=== PATIENT | female | born 1960 | race American Indian/Alaskan Native ===

== ENCOUNTER 2020-09-29 13:00 | Emergency (ER) | payer SELFPAY ==
--- NOTE | 2020-09-29 13:34 | Event Note ---
ED Screening Note Date of service: 09/29/20 Time: 13:32 ED Screening Note: 60-year-old female patient presents to emergency department with complaints of dizziness and nontraumatic headache starting 2 days ago. Patient states her symptoms are worse with standing and movement. She asked a colleague to check her blood pressure at work when her symptoms began, and her blood pressure was found to be elevated. She has no known history of hypertension. She has not been to a primary care physician in several years. She does not take any medication on a daily basis. Headache has been diffuse with waxing/waning intensity. General: Awake, appropriately interactive, no acute distress. Neck: Supple. Full range of motion intact. Cardiovascular: Normal peripheral perfusion. Pulmonary: No respiratory distress. Patient is speaking normally without use of accessory muscles. Skin: No apparent rashes or lesions. Neurological: No facial asymmetry. Speech is clear. Follows commands. Patient is alert and oriented. Musculoskeletal: Moves all four extremities spontaneously with normal range of motion. Psych: Cooperative. Appropriate mood and affect. I have greeted and performed a focused rapid initial assessment of this patient. A comprehensive ED assessment and evaluation of the patient, analysis of all test results, and completion of the medical decision-making process will be conducted by additional ED providers. This initial assessment/diagnostic orders/clinical plan/treatment(s) is/are subject to change based on patients health status, clinical progression and re-assessment. Further treatment and workup at subsequent clinical provider's discretion. Patient/guardian urged not to elope from the ED as their condition may be serious if not clinically assessed and managed.
--- NOTE | 2020-09-29 14:00 | XRay Report ---
CHEST 2 VIEWS INDICATION / CLINICAL INFORMATION: dizziness. COMPARISON: April 30, 2014 FINDINGS: SUPPORT DEVICES: None. HEART / MEDIASTINUM: No significant abnormality. LUNGS / PLEURA: No significant pulmonary or pleural abnormality. No pneumothorax. ADDITIONAL FINDINGS: No significant additional findings. IMPRESSION: 1. No acute findings. Signer Name: Julio Mcfadden MD Signed: 09/29/2020 1:56 PM Workstation Name: [id number]
[2020-09-29 14:08] LABS: Basophils % (Auto) 0.9 % (0.0-1.8); Eosinophils # (Auto) 0.1 K/mm3 (0.0-0.4); Eosinophils % (Auto) 2.6 % (0.0-4.3); Hematocrit 39.5 % (30.3-42.9); Hemoglobin 12.8 gm/dl (10.1-14.3); Lymphocytes # (Auto) 1.6 K/mm3 (1.2-5.4); Lymphocytes % (Auto) 33.5 % (13.4-35.0); Mean Corpuscular HGB Conc 32 % (30-34); Mean Corpuscular Volume 90 fl (79-97); Monocytes # (Auto) 0.4 K/mm3 (0.0-0.8); Monocytes % (Auto) 7.3 % (0.0-7.3); Platelet Count 185 K/mm3 (140-440); Red Blood Count 4.37 M/mm3 (3.65-5.03); Red Cell Distribution Width 12.7 % (13.2-15.2)
[2020-09-29 14:32] LABS: Alanine Aminotransferase 9 units/L (7-56); Albumin 4.5 g/dL (3.9-5); BUN/Creatinine Ratio 15; Blood Urea Nitrogen 9 mg/dL (7-17); Calcium 9.7 mg/dL (8.4-10.2); Hemolysis Index 20
--- NOTE | 2020-09-29 16:58 | Emergency Department Report ---
ED General Adult HPI - General Chief complaint: Headache Stated complaint: DIZZY/BLOOD PRESSURE HIGH Time Seen by Provider: 09/29/20 16:29 Source: patient Mode of arrival: Ambulatory Limitations: No Limitations - History of Present Illness Initial comments: The patient presents to the emergency department with a chief complaint of a headache with dizziness x2 days. Patient states the dizziness is present when she tries to sit up too quickly but is resolved when sitting still. Patient scribes the room is spinning with the dizziness. Patient also complains of diffuse headache for the last 2 days. She states today at work she took her blood pressure and her systolic BP was 168 mmHg. Patient denies history of hypertension. -: days(s) (2) Location: head Radiation: non-radiation Severity scale (0 -10): 3 Quality: other (throbbing) Consistency: constant Improves with: rest Worsens with: movement Associated Symptoms: denies other symptoms Treatments Prior to Arrival: none - Related Data Previous Rx's Medication Instructions Recorded Last Taken Type hydroCHLOROthiazide [Hctz] 12.5 mg PO QDAY #30 capsule 09/29/20 Unknown Rx Allergies Allergy/AdvReac Type Severity Reaction Status Date / Time aspirin Allergy Intermediate Vomiting Verified 09/29/20 15:47 codeine Allergy Intermediate Vomiting Verified 09/29/20 15:47 Penicillins Allergy Unknown Hives Verified 09/29/20 15:47 ED Review of Systems ROS: Stated complaint: DIZZY/BLOOD PRESSURE HIGH Other details as noted in HPI Comment: All other systems reviewed and negative Constitutional: denies: chills, fever Eyes: denies: eye pain, eye discharge, vision change ENT: denies: ear pain, throat pain Respiratory: denies: cough, shortness of breath, wheezing Cardiovascular: denies: chest pain, palpitations Endocrine: no symptoms reported Gastrointestinal: denies: abdominal pain, nausea, diarrhea Genitourinary: denies: urgency, dysuria, discharge Musculoskeletal: denies: back pain, joint swelling, arthralgia Skin: denies: rash, lesions Neurological: headache. denies: weakness, paresthesias Psychiatric: denies: anxiety, depression Hematological/Lymphatic: denies: easy bleeding, easy bruising ED Past Medical Hx - Past Medical History Previous Medical History?: Yes - Surgical History Additional Surgical History: Hysterectomy - Social History Smoking Status: Never Smoker - Medications Home Medications: Home Medications Medication Instructions Recorded Confirmed Last Taken Type hydroCHLOROthiazide [Hctz] 12.5 mg PO QDAY #30 capsule 09/29/20 Unknown Rx ED Physical Exam - General Limitations: No Limitations General appearance: alert, in no apparent distress - Head Head exam: Present: atraumatic, normocephalic - Eye Eye exam: Present: normal appearance, PERRL, EOMI - ENT ENT exam: Present: mucous membranes moist - Neck Neck exam: Present: normal inspection - Respiratory Respiratory exam: Present: normal lung sounds bilaterally. Absent: respiratory distress - Cardiovascular Cardiovascular Exam: Present: regular rate, normal rhythm. Absent: systolic murmur, diastolic murmur, rubs, gallop - GI/Abdominal GI/Abdominal exam: Present: soft, normal bowel sounds. Absent: distended, te nderness - Extremities Exam Extremities exam: Present: normal inspection - Back Exam Back exam: Present: normal inspection - Neurological Exam Neurological exam: Present: alert, oriented X3, CN II-XII intact. Absent: motor sensory deficit - Psychiatric Psychiatric exam: Present: normal affect, normal mood - Skin Skin exam: Present: warm, dry, intact, normal color. Absent: rash ED Course Vital Signs 09/29/20 09/29/20 13:13 15:56 Temperature 98.4 F Pulse Rate 68 59 L Respiratory 18 19 Rate Blood Pressure 160/86 Blood Pressure 159/92 [Left] O2 Sat by Pulse 99 100 Oximetry ED Medical Decision Making - Lab Data Result diagrams: 09/29/20 13:51 09/29/20 13:51 Lab Results 09/29/20 09/29/20 Range/Units 13:51 13:51 WBC 4.9 (4.5-11.0) K/mm3 RBC 4.37 (3.65-5.03) M/mm3 Hgb 12.8 (10.1-14.3) gm/dl Hct 39.5 (30.3-42.9) % MCV 90 (79-97) fl MCH 29 (28-32) pg MCHC 32 (30-34) % RDW 12.7 L (13.2-15.2) % Plt Count 185 (140-440) K/mm3 Lymph % (Auto) 33.5 (13.4-35.0) % [place] % (Auto) 7.3 (0.0-7.3) % Eos % (Auto) 2.6 (0.0-4.3) % Baso % (Auto) 0.9 (0.0-1.8) % Lymph # (Auto) 1.6 (1.2-5.4) K/mm3 [place] # (Auto) 0.4 (0.0-0.8) K/mm3 Eos # (Auto) 0.1 (0.0-0.4) K/mm3 Baso # (Auto) 0.0 (0.0-0.1) K/mm3 Seg Neutrophils % 55.7 (40.0-70.0) % Seg Neutrophils # 2.7 (1.8-7.7) K/mm3 Sodium 140 (137-145) mmol/L Potassium 4.1 (3.6-5.0) mmol/L Chloride 102.7 (98-107) mmol/L Carbon Dioxide 27 (22-30) mmol/L Anion Gap 14 mmol/L BUN 9 (7-17) mg/dL Creatinine 0.6 (0.6-1.2) mg/dL Estimated GFR > 60 ml/min BUN/Creatinine Ratio 15 % Glucose 102 H (65-100) mg/dL Calcium 9.7 (8.4-10.2) mg/dL Magnesium 1.60 L (1.7-2.3) mg/dL Total Bilirubin 0.70 (0.1-1.2) mg/dL AST 18 (5-40) units/L ALT 9 (7-56) units/L Alkaline Phosphatase 65 (35-129) units/L Troponin T < 0.010 (0.00-0.029) ng/mL Total Protein 7.4 (6.3-8.2) g/dL Albumin 4.5 (3.9-5) g/dL Albumin/Globulin Ratio 1.6 % - Medical Decision Making The patient states her headache has resolved without intervention Discussed imaging and laboratory values with the patient Discussed plan of care with the patient Critical care attestation.: If time is entered above; I have spent that time in minutes in the direct care of this critically ill patient, excluding procedure time. ED Disposition Clinical Impression: Elevated blood pressure reading, Cephalgia Disposition: TO HOME OR SELFCARE Is pt being admited?: No Does the pt Need Aspirin: No Condition: Stable Instructions: Hypertension, Adult Additional Instructions: return if worse Referrals: PRIMARY CARE, [Primary Care Provider] - 3-5 Days AIDEN BUI MD [Staff Physician] - 3-5 Days ERIC AGUIAR MD [Staff Physician] - 3-5 Days TRESSA BLACKWELL MD [Staff Physician] - 3-5 Days ZENON SCHAFER MD [Staff Physician] - 3-5 Days Time of Disposition: 18:05
--- NOTE | 2020-09-29 17:33 | Cat Scan Report ---
CT BRAIN: 09/29/2020 INDICATION / CLINICAL INFORMATION: headache/vertigo/. COMPARISON: None available. FINDINGS: BRAIN/INTRACRANIAL STRUCTURES: Unenhanced CT images of the brain demonstrate no evidence of acute int racranial abnormality. Ventricles and sulci are normal in size and shape. There is no evidence of hemorrhage or mass. There are no abnormal extra-axial fluid collections. EXTRACRANIAL STRUCTURES: Unremarkable. IMPRESSION: No acute abnormality. All CT scans at this location are performed using dose reduction to ALARA by means of automated expos ure control. Signer Name: Mario Alberto Bean MD Signed: 09/29/2020 5:29 PM Workstation Name: [id number]
[2020-09-29] MEDS ORDERED: hydroCHLOROthiazide 25 MG TAB PO ONE (18:02)
[2020-09-29 18:38] VITALS: BP 171/90
--- NOTE | 2020-09-30 10:54 | Electrocardiograph Report ---
[facility] Test Date: 2020-09-29 Test Time: 13:33:49 Pat Name: FAUSTINA DEVI Department: Room: Gender: F Certified Hand Therapist: ROHINI : 1960 Requested By: BELEN SERRANO Order Number: [id number] Reading MD: Jonathon Randle Measurements Intervals [place] Rate: 67 P: 68 WV: 184 QRS: -3 QRSD: 112 T: 78 QT: 436 QTc: 463 Interpretive Statements Sinus rhythm Probable left atrial enlargement RSR' IN V1 OR V2, PROBABLY NORMAL VARIANT LVH with secondary repolarization abnormality No previous ECG available for comparison Electronically Signed On 09-30-2020 10:53:48 EDT by Jonathon Randle
== END 2020-09-29 18:35 | disposition home or self-care (01) ==
LOC: ED 13:00
DX: R03.0 Elevated blood-pressure reading, without diagnosis of hypertension (principal); R51.9 Headache, unspecified; R42 Dizziness and giddiness; Z90.710 Acquired absence of both cervix and uterus; Z88.6 Allergy status to analgesic agent; Z88.5 Allergy status to narcotic agent; Z88.0 Allergy status to penicillin; Z79.899 Other long term (current) drug therapy
CPT/HCPCS: 36415; 70450; 71046; 80053; 83735; 84484; 85025; 93005; 99284